=== PATIENT | female | born 1970 | race Hispanic/Latino ===

== ENCOUNTER → 2018-02-18 | Outpatient (CLI) | payer BC ==
[~2018-02-18] MED LIST: AMOX-426 PO; ESOM40CA PO; MONT10TA21 PO; VENTOLIN INHALER PRN IH
== END | disposition home or self-care (01) ==
LOC: RAH 09:08
PROVIDERS: ATTEND Nurse Practitioner Adult Health
DX: Z12.31 Encounter for screening mammogram for malignant neoplasm of breast (principal)
CPT/HCPCS: 77067

== ENCOUNTER → 2019-02-27 | Outpatient (CLI) | payer BC | END | disposition home or self-care (01) | LOC: RAH 12:59 | PROVIDERS: ATTEND Nurse Practitioner Adult Health | DX: Z12.31 Encounter for screening mammogram for malignant neoplasm of breast (principal) | CPT/HCPCS: 77067 ==

== ENCOUNTER → 2022-03-20 | Outpatient (CLI) | payer BC | END | disposition home or self-care (01) | LOC: RAH 07:44 | PROVIDERS: ATTEND Nurse Practitioner Adult Health | DX: Z12.31 Encounter for screening mammogram for malignant neoplasm of breast (principal) | CPT/HCPCS: 77067 ==

== ENCOUNTER → 2023-03-22 | Outpatient (CLI) | payer OTHER ==
[~2023-03-22] MED LIST changes: +MONT-47 PO; -MONT10TA21 PO
== END | disposition home or self-care (01) ==
LOC: RAH 11:27
PROVIDERS: ATTEND Obstetrics & Gynecology
DX: Z12.31 Encounter for screening mammogram for malignant neoplasm of breast (principal)
CPT/HCPCS: 77067

== ENCOUNTER → 2023-10-01 | Outpatient (CLI) | payer OTHER | END | disposition home or self-care (01) | LOC: OIH 10:22 | PROVIDERS: ATTEND Nurse Practitioner Adult Health | DX: Z13.6 Encounter for screening for cardiovascular disorders (principal) | CPT/HCPCS: 75571 ==

== ENCOUNTER → 2024-04-21 | Outpatient (CLI) | payer OTHER ==
--- NOTE | 2024-04-21 10:09 | HMCIMG ---
MR SHOULDER RIGHT WO REASON: M75.21 Bicipital tendinitis, right shoulder COMPARISON: None TECHNIQUE: Routine imaging protocol was performed in the axial, oblique sagittal and oblique coronal plane with T1, proton density, T2 and gradient recalled sequences. FINDINGS: AC joint appears unremarkable. There is increased signal intensity in the musculotendinous portion of the rotator cuff tendon consistent with tendinosis or tendinitis. There is also evidence of a full-thickness tear present anteriorly in the supraspinatus tendon. There is mild retraction of the proximal and distal fragments. There is some narrowing of the glenohumeral joint space. There are no focal osseous lesions. Biceps tendon appears unremarkable. There is no joint effusion. Surrounding soft tissues appear unremarkable. IMPRESSION: 1. Findings consistent with a mildly distracted tear of the supraspinatus portion of the rotator cuff tendon, there is also associated tendinosis or tendinitis. 2. Moderate glenohumeral joint space narrowing consistent with osteoarthritis.
== END | disposition home or self-care (01) ==
LOC: RAH 08:30
PROVIDERS: ATTEND Student in an Organized Health Care Education/Training Program
DX: M75.121 Complete rotator cuff tear or rupture of right shoulder, not specified as traumatic (principal); M75.21 Bicipital tendinitis, right shoulder; M19.011 Primary osteoarthritis, right shoulder
CPT/HCPCS: 73221

== ENCOUNTER → 2024-08-23 | Outpatient (CLI) | payer OTHER ==
[~2024-08-23] MED LIST changes: -AMOX-426 PO; -ESOM40CA PO; +ESTR1PAT86 TP; +GABA-529 PO; +HYDR-4060 PO; +PROG200C11 PO; +ROSU10TA72 PO; +SEMA1PEN3 SQ
--- NOTE | 2024-08-24 10:48 | HMCIMG ---
SCREENING MAMMOGRAM HISTORY: Annual screening. COMPARISON: March 22, 2023. TECHNIQUE: Bilateral mammogram with CAD was performed with CC and MLO projections. FINDINGS: Breast parenchyma is mostly fatty replaced. No dominant mass or suspicious microcalcification identified. There is no nipple retraction or skin thickening. CAD shows no worrisome regions. IMPRESSION: 1. No mammographic signs of malignancy. 2. Routine follow-up recommended. BI-RADS: CATEGORY 1: NEGATIVE Note: A negative x-ray should not delay biopsy if a dominant or clinically suspicious mass is present, since 8-10% of cancers are not identified by mammography.
== END | disposition home or self-care (01) ==
LOC: RAH 10:40
PROVIDERS: ATTEND Obstetrics & Gynecology
DX: Z12.31 Encounter for screening mammogram for malignant neoplasm of breast (principal); R92.313 Mammographic fatty tissue density, bilateral breasts
CPT/HCPCS: 77067